=== PATIENT | female | born 1945 | race Caucasian/White ===

== ENCOUNTER 2018-07-25 05:41 | Inpatient (IN) | payer MEDICARE, MEDICAID ==
[2018-07-23 15:38] LABS: BASOPHILS % (AUTO) 0.7 % (0-1); EOSINOPHILS # (AUTO) 0.3 X10'3 (0-0.9); LYMPHOCYTES # (AUTO) 1.4 X10'3 (1.1-4.8); LYMPHOCYTES % (AUTO) 23.3 % (21-51); MEAN CORPUSCULAR HEMOGLOBIN 31.6 PG (27.0-31.0); MEAN CORPUSCULAR HGB CONC 34.2 % (33.0-36.5); MEAN CORPUSCULAR VOLUME 92.6 FL (78-98); MEAN PLATELET VOLUME 8.6 FL (7.4-10.4); MONOCYTES # (AUTO) 0.5 X10'3 (0-0.9); MONOCYTES % (AUTO) 7.8 % (2-12); NEUTROPHILS # (AUTO) 3.7 X10'3 (1.8-7.7); NEUTROPHILS % (AUTO) 62.2 % (42-75); PRE OP HEMATOCRIT 32.4 % (35.0-45.0); PRE OP HEMOGLOBIN 11.1 g/dL (12.0-16.0); PRE OP PLATELET COUNT 212 X10'3 (140-440); RED BLOOD COUNT 3.49 X10'6 (4.20-5.60); RED CELL DISTRIBUTION WIDTH 14.8 % (11.5-14.5)
[2018-07-23 15:40] LABS: CLARITY,URINE SLIGHTLY CLOUDY (Clear); COLOR,URINE YELLOW (Yellow); GLUCOSE, URINE >=1000 mg/dl (Neg); KETONES,URINE NEGATIVE (Neg); LEUKOCYTE ESTERASE ,URINE NEGATIVE (Neg); NITRITES, URINE POSITIVE (Neg); OCCULT BLOOD,URINE TRACE-LYSED (Neg); PH,URINE 5.5 (4.8-8.0); PROTEIN,URINE NEGATIVE (Neg); UROBILINOGEN,URINE 0.2 E.U/dL (0.2-1.0)
[2018-07-23 15:41] LABS: ABG BASE EXCESS 0.5 mmol/L (-2.0-3.0); ABG HCO3 24.9 mmol/L (22.0-26.0); ABG OXYGEN SATURATION 96.3 % (95-98); ABG PCO2 (T) 39.5 mmHg (32.0-45.0); ABG PH (T) 7.418 (7.350-7.450); ABG PO2 (T) 87.6 mmHg (83-108); ALLEN'S TEST Positive; FO2Hb 96.3 % (94-100); TOTAL HEMOGLOBIN 12.2 G/dl (12.0-16.0)
[2018-07-23 15:48] LABS: PRE OP PROTIME 10.3 SECONDS (9.0-12.0)
[2018-07-23 15:50] LABS: UA COLLECTION TYPE CLN CATCH MIDSTREAM
[2018-07-23 16:02] LABS: ALBUMIN 3.3 G/DL (3.4-5.0); ALKALINE PHOSPHATASE 64 IU/L (46-116); BLOOD UREA NITROGEN 37 MG/DL (7-18); BUN/CREATININE RATIO 30.1 (6.6-38.0); CALCIUM 9.1 MG/DL (8.5-10.1); CHLORIDE 102 MMOL/L (99-107); CREATININE 1.23 MG/DL (0.40-0.90); PRE OP ALT 17 U/L (30-65); PRE OP ANION GAP 7 (8-16); PRE OP AST 14 U/L (10-37); PRE OP BILIRUB, TOTAL 0.3 MG/DL (0.0-1.0); PRE OP GLUCOSE 97 MG/DL (70-104); PRE OP POTASSIUM 3.6 MMOL/L (3.4-5.1); PRE OP SODIUM 137 MMOL/L (135-145); TOTAL CARBON DIOXIDE 28.4 MMOL/L (24-32); TOTAL PROTEIN 6.7 G/DL (6.4-8.2); eGFR 43 ML/MIN
[2018-07-23 16:03] LABS: BACTERIA,URINE 4+ /HPF (Neg); MUCUS STRANDS NONE SEEN /LPF (Neg); RBC,URINE NONE SEEN /HPF (0-2); SQUAMOUS EPITHELIAL CELL,UR FEW /LPF (FEW); TRANSITIONAL EPI CELLS,URINE FEW /HPF; WBC,URINE 0-4 /HPF (0-4)
[2018-07-23 16:17] LABS: HEMOGLOBIN A1C 6.4 % (4.5-6.2)
[~2018-07-25] VITALS: Ht 170.2 cm; Wt 92.3 kg
[2018-07-25] VITALS (24 sets, daily range): BP systolic 92–144; BP diastolic 37–69
[~2018-07-25 05:41] MED LIST: AMLO2.5T3 PO; ASPI-1265 PO; Cefazolin 2GM/50ML dext iso,osmotic IVPB IV ONE; DOCUMENT DATE & TIME OF BETA-BLOCKER PO ONE; EMPA25TA PO; INSU200I; LEVO75TA PO; LORazepam 2 mg/ml vial IV ONE; MAGN400C PO; METF500T PO; METO100T14 PO; OLME1TAB24 PO; PIOG30TA10 PO; ceFAZolin 1000mg inj ONE; dextrose 50%-water 50ml dispensing syringe IV PRN; famotidine 20mg tablet PO ONE; insulin regular, human 100 UNIT in normal saline 100ml IV soln 99 ML IV SCH; metoprolol tartrate 12.5mg (1/2 tablet) PO ONE; mupirocin 2% nasal ointment 1gm UD NS ONE; ringers solution, lacted 1,000 ML IV SCH; vancomycin inj 1,500 MG in normal saline 300ml IV soln IV ONE
[2018-07-25] MEDS ORDERED: LIDOcaine 1% (10mg/ml) 2ml vial ONE (05:43)
[2018-07-25] MEDS ORDERED: papaverine 30 mg/ml 2ml inj. IA ONE (06:00)
[2018-07-25] MEDS ORDERED: heparin 10,000 units/1 ML INJ IR ONE (06:00)
[2018-07-25] MEDS ORDERED: ATOR40TA3 PO (06:02)
[2018-07-25] MEDS ORDERED: OLME1TAB21 PO (06:02)
[2018-07-25] MEDS ORDERED: sevoflurane 250ml liquid IH ONE (07:48)
[2018-07-25] MEDS ORDERED: INSULIN R 100 UNIT in NS 100ML (1 UNIT/1 ML) BAG IV ONE (07:48)
[2018-07-25] MEDS ORDERED: DOPamine/D5W 400mg/250ml bag IV ONE (07:48)
[2018-07-25] MEDS ORDERED: nitroGLYCERIN in D5W 50mg/250ml (Tridil) infusion IV ONE (07:48)
[2018-07-25] MEDS ORDERED: isoflurane 100ml inhalation liquid IH ONE (07:48)
[2018-07-25] MEDS ORDERED: MIDAZolam 1mg/ml 10ml vial ONE (07:52)
[2018-07-25] MEDS ORDERED: SUFENTANIL CITRATE 50 MCG/ML 2ml ampule IV ONE (07:52)
[2018-07-25] MEDS ORDERED: methylPREDNISolone sod succ 1000mg vial ONE (09:00)
[2018-07-25] MEDS ORDERED: heparin 1,000 units/ml 10ml inj ONE (09:00)
[2018-07-25] MEDS ORDERED: magnesium sulf 1 GM/2 ML ONE (09:00)
[2018-07-25] MEDS ORDERED: phenylephrine 10mg/ml inj. ONE (09:00)
[2018-07-25] MEDS ORDERED: sodium bicarbonate (8.4%) 1 mEq/ml syringe ONE (09:00)
[2018-07-25] MEDS ORDERED: potassium Cl 2 mEq/ml inj IV ONE (09:00)
[2018-07-25] MEDS ORDERED: papaverine 30 mg/ml 2ml inj. ONE (09:00)
[2018-07-25] MEDS ORDERED: LIDOcaine 2% (20 mg/ml) 5ml cardiac syringe ONE (09:00)
[2018-07-25] MEDS ORDERED: albumin (human) 25% 100 ML IV solution IV ONE (09:00)
[2018-07-25] MEDS ORDERED: aminocaproic acid 250 MG/1 ML inj. ONE (09:00)
[2018-07-25] MEDS ORDERED: heparin 10,000 units/1 ML INJ ONE ×2 (09:00)
[2018-07-25] MEDS ORDERED: calcium chloride 100 MG/1 ML inj IV ONE (09:00)
[2018-07-25 09:36] LABS: ABG BASE EXCESS VENOUS 0.3 mmol/L; ABG HCO3 VENOUS 25.4 mmol/L; CL (ABG) 103 mmol/L (99-107); FCOHb VENOUS 0.8 %; FHHb VENOUS 11.3 %; FMetHb VENOUS 0.3 %; FO2Hb VENOUS 87.6 %; GLUCOSE (ABG) 130 mg/dl (70-105); IONIZED CA (ABG) 1.15 mmol/L (1.03-1.32); K (ABG) 3.8 mmol/L (3.3-5.1); NA (ABG) 134 mmol/L (135-145); TOTAL HEMOGLOBIN 14.1 G/dl (12.0-16.0)
[2018-07-25 09:50] LABS: ABG BASE EXCESS 1.7 mmol/L (-2.0-3.0); ABG HCO3 24.7 mmol/L (22.0-26.0); ABG OXYGEN SATURATION 99.5 % (95-98); ABG PH 7.506 (7.350-7.450); CL (ABG) 101 mmol/L (99-107); FCOHb 0.5 % (0.5-1.5); FMetHb 0.6 % (0.3-1.12); FO2Hb 98.4 % (94-100); GLUCOSE (ABG) 142 mg/dl (70-105); K (ABG) 3.8 mmol/L (3.3-5.1); NA (ABG) 132 mmol/L (135-145); TOTAL HEMOGLOBIN 7.6 G/dl (12.0-16.0)
[2018-07-25] MEDS ORDERED: ipratropium/albuterol 3ml nebule IH PRN (09:55)
[2018-07-25 09:56] LABS: ACT @ 1.70 U 292 SEC (193-297); ACT @ 2.84 U 431 SEC (260-420); BASELINE ACT 126 SEC (101-148); PATIENT WEIGHT 84.0k KG
[2018-07-25 09:56] LABS: ABG BASE EXCESS 0.9 mmol/L (-2.0-3.0); ABG HCO3 25.3 mmol/L (22.0-26.0); ABG OXYGEN SATURATION 84.2 % (95-98); ABG PCO2 39.5 mmHg (35.0-45.0); ABG PH 7.424 (7.350-7.450); CL (ABG) 103 mmol/L (99-107); FCOHb 0.2 % (0.5-1.5); GLUCOSE (ABG) 115 mg/dl (70-105); IONIZED CA (ABG) 1.15 mmol/L (1.03-1.32); K (ABG) 3.8 mmol/L (3.3-5.1); NA (ABG) 135 mmol/L (135-145); TOTAL HEMOGLOBIN 10.3 G/dl (12.0-16.0)
[2018-07-25 09:59] LABS: ABG PO2 49.9 mmHg (60.0-100.0)
[2018-07-25 10:21] LABS: ABG BASE EXCESS 0.4 mmol/L (-2.0-3.0); ABG HCO3 23.3 mmol/L (22.0-26.0); ABG OXYGEN SATURATION 99.5 % (95-98); ABG PCO2 30.5 mmHg (35.0-45.0); ABG PH 7.501 (7.350-7.450); ABG PO2 375.6 mmHg (60.0-100.0); CL (ABG) 103 mmol/L (99-107); FCOHb 0.6 % (0.5-1.5); FMetHb 0.4 % (0.3-1.12); FO2Hb 98.5 % (94-100); GLUCOSE (ABG) 141 mg/dl (70-105); IONIZED CA (ABG) 1.07 mmol/L (1.03-1.32); K (ABG) 4.3 mmol/L (3.3-5.1); NA (ABG) 132 mmol/L (135-145)
[2018-07-25 10:30] LABS: ABG HCO3 26.5 mmol/L (22.0-26.0); ABG OXYGEN SATURATION 99.4 % (95-98); ABG PCO2 (T) 38.7 mmHg (32.0-45.0); ABG PH (T) 7.449 (7.350-7.450); ABG PO2 (T) 359.4 mmHg (83-108); FCOHb 0.4 % (0.5-1.5); FMetHb 0.5 % (0.3-1.12); FO2Hb 98.5 % (94-100); TOTAL HEMOGLOBIN 7.7 G/dl (12.0-16.0)
[2018-07-25 10:36] LABS: ABG HCO3 25.4 mmol/L (22.0-26.0); ABG OXYGEN SATURATION 99.5 % (95-98); ABG PCO2 39.4 mmHg (35.0-45.0); ABG PH 7.428 (7.350-7.450); ABG PO2 379.4 mmHg (60.0-100.0); CL (ABG) 104 mmol/L (99-107); FCOHb 0.6 % (0.5-1.5); FMetHb 0.5 % (0.3-1.12); FO2Hb 98.4 % (94-100); GLUCOSE (ABG) 144 mg/dl (70-105); IONIZED CA (ABG) 1.07 mmol/L (1.03-1.32); K (ABG) 4.7 mmol/L (3.3-5.1); NA (ABG) 141 mmol/L (135-145); TOTAL HEMOGLOBIN 7.6 G/dl (12.0-16.0)
[2018-07-25 11:00] LABS: ABG BASE EXCESS 1.7 mmol/L (-2.0-3.0); ABG HCO3 26.6 mmol/L (22.0-26.0); ABG OXYGEN SATURATION 99.5 % (95-98); ABG PCO2 43.5 mmHg (35.0-45.0); ABG PH 7.405 (7.350-7.450); ABG PO2 330.1 mmHg (60.0-100.0); CL (ABG) 104 mmol/L (99-107); FCOHb 0.6 % (0.5-1.5); FMetHb 0.5 % (0.3-1.12); FO2Hb 98.4 % (94-100); GLUCOSE (ABG) 146 mg/dl (70-105); K (ABG) 4.5 mmol/L (3.3-5.1); NA (ABG) 134 mmol/L (135-145); TOTAL HEMOGLOBIN 7.8 G/dl (12.0-16.0)
[2018-07-25 11:21] LABS: ABG HCO3 21.6 mmol/L (22.0-26.0); ABG OXYGEN SATURATION 99.3 % (95-98); ABG PCO2 48.9 mmHg (35.0-45.0); ABG PH 7.263 (7.350-7.450); ABG PO2 324.5 mmHg (60.0-100.0); CL (ABG) 104 mmol/L (99-107); FCOHb 0.8 % (0.5-1.5); FMetHb 0.6 % (0.3-1.12); FO2Hb 97.9 % (94-100); GLUCOSE (ABG) 137 mg/dl (70-105); K (ABG) 4.3 mmol/L (3.3-5.1); NA (ABG) 134 mmol/L (135-145); TOTAL HEMOGLOBIN 6.6 G/dl (12.0-16.0)
[2018-07-25] MEDS ORDERED: rocuronium 10mg/ml inj IV ONE (11:47)
[2018-07-25] MEDS ORDERED: ceFAZolin 1000mg inj ONE (11:47)
[2018-07-25] MEDS ORDERED: etomidate 2mg/ml inj. ONE (11:47)
[2018-07-25] MEDS ORDERED: LIDOcaine 2% (20mg/ml) 5ml vial ONE (11:47)
[2018-07-25 11:51] LABS: ABG BASE EXCESS 3.8 mmol/L (-2.0-3.0); ABG HCO3 28.1 mmol/L (22.0-26.0); ABG OXYGEN SATURATION 82.6 % (95-98); ABG PCO2 41.6 mmHg (35.0-45.0); ABG PH 7.448 (7.350-7.450); ABG PO2 49.6 mmHg (60.0-100.0); CL (ABG) 104 mmol/L (99-107); FCOHb 0.6 % (0.5-1.5); FMetHb 0.8 % (0.3-1.12); FO2Hb 81.4 % (94-100); GLUCOSE (ABG) 135 mg/dl (70-105); IONIZED CA (ABG) 1.19 mmol/L (1.03-1.32); K (ABG) 4.1 mmol/L (3.3-5.1); NA (ABG) 131 mmol/L (135-145); TOTAL HEMOGLOBIN 7.3 G/dl (12.0-16.0)
[2018-07-25] MEDS ORDERED: DOPamine 400mg/D5W 250ml 250 ML IV PRN (12:20)
[2018-07-25] MEDS ORDERED: Neutra Phos packet PO PRN (12:20)
[2018-07-25] MEDS ORDERED: magnesium 1gm/100ml D5W IVPB 100 ML IV PRN (12:20)
[2018-07-25] MEDS ORDERED: metoclopramide 5 mg/ml inj IV PRN (12:20)
[2018-07-25] MEDS ORDERED: normal saline 250ml IV soln 250 ML IV PRN (12:20)
[2018-07-25] MEDS ORDERED: insulin regular, human inj. 100 UNITS in normal saline 100ml IV soln 100 ML IV SCH ×2 (12:20)
[2018-07-25] MEDS ORDERED: sodium phosphate inj. 15 MMOL in dextrose 5%-water 150 ML IV PRN (12:20)
[2018-07-25] MEDS ORDERED: dextrose 50%-water 50ml dispensing syringe IV PRN (12:20)
[2018-07-25] MEDS ORDERED: potassium Cl 20mEq/100mL bag 100 ML IV PRN ×2 (12:20)
[2018-07-25] MEDS ORDERED: magnesium 4gm in 100ml NS 100 ML IV PRN (12:20)
[2018-07-25] MEDS ORDERED: sodium phosphate inj. 30 MMOL in dextrose 5%-water 250 ML IV PRN (12:20)
[2018-07-25] MEDS ORDERED: niCARDipine/sod cl 20mg/200ml 200 ML IV PRN (12:20)
[2018-07-25] MEDS ORDERED: acetaminophen 325mg tablet PO PRN (12:20)
[2018-07-25] MEDS ORDERED: nitroGLYCERIN-Tridil 50MG/D5W 250 ML IV PRN (12:20)
[2018-07-25] MEDS ORDERED: morphine 4 MG/ML inj SYRINge ONE (12:28)
[2018-07-25 12:35] LABS: ABG BASE EXCESS 0.2 mmol/L (-2.0-3.0); ABG HCO3 23.5 mmol/L (22.0-26.0); ABG PCO2 (T) 31.3 mmHg (32.0-45.0); ABG PH (T) 7.489 (7.350-7.450); ABG PO2 (T) 403.1 mmHg (83-108); FCOHb 0.2 % (0.5-1.5); FMetHb 0.4 % (0.3-1.12); FO2Hb 98.4 % (94-100); MINUTE VOLUME 8 L/min; PATIENT TEMPERATURE 36.1; PEEP 5 cm H2O; RESPIRATORY RATE 12 b/min; RESPIRATORY RATE (OBSERVED) 12 b/min; TIDAL VOLUME 600 mL; TOTAL HEMOGLOBIN 8.9 G/dl (12.0-16.0)
[2018-07-25 12:42] LABS: BASOPHILS % (AUTO) 0.2 % (0-1); EOSINOPHILS # (AUTO) 0.1 X10'3 (0-0.9); EOSINOPHILS % (AUTO) 1.6 % (0-6); HEMATOCRIT 23.5 % (35.0-45.0); HEMOGLOBIN 8.2 g/dl (12.0-16.0); LYMPHOCYTES # (AUTO) 1.1 X10'3 (1.1-4.8); LYMPHOCYTES % (AUTO) 14.5 % (21-51); MEAN CORPUSCULAR HEMOGLOBIN 32.2 PG (27.0-31.0); MEAN CORPUSCULAR HGB CONC 34.9 % (33.0-36.5); MEAN CORPUSCULAR VOLUME 92.1 FL (78-98); MEAN PLATELET VOLUME 8.5 FL (7.4-10.4); MONOCYTES # (AUTO) 0.3 X10'3 (0-0.9); MONOCYTES % (AUTO) 3.5 % (2-12); NEUTROPHILS # (AUTO) 6.2 X10'3 (1.8-7.7); NEUTROPHILS % (AUTO) 80.2 % (42-75); PLATELET COUNT 130 X10'3 (140-440); RED BLOOD COUNT 2.55 X10'6 (4.20-5.60); RED CELL DISTRIBUTION WIDTH 14.8 % (11.5-14.5); WHITE BLOOD COUNT 7.7 X10'3 (4.5-11.0)
[2018-07-25 12:52] LABS: INR 1.2 INR; PARTIAL THROMBOPLASTIN TIME 26 SECONDS (22-32); PROTHROMBIN TIME 11.9 SECONDS (9.0-12.0)
[2018-07-25 12:59] LABS: ALANINE AMINOTRANSFERASE 17 U/L (12-78); ALBUMIN 2.7 G/DL (3.4-5.0); ALBUMIN/GLOBULIN RATIO 1.4 (1.1-1.5); ALKALINE PHOSPHATASE 37 IU/L (46-116); ANION GAP 8 (8-16); ASPARTATE AMINO TRANSFERASE 24 U/L (10-37); BILIRUBIN,TOTAL 0.4 MG/DL (0.1-1.0); BLOOD UREA NITROGEN 32 MG/DL (7-18); BUN/CREATININE RATIO 25.2 (6.6-38.0); CALCIUM 9.1 MG/DL (8.5-10.1); CHLORIDE 108 MMOL/L (99-107); CREATININE 1.27 MG/DL (0.40-0.90); GLUCOSE 120 MG/DL (70-104); MAGNESIUM 3.8 MG/DL (1.5-2.4); PHOSPHORUS 1.7 MG/DL (2.3-4.5); POTASSIUM 3.7 MMOL/L (3.5-5.1); SODIUM 142 MMOL/L (135-145); TOTAL PROTEIN 4.7 G/DL (6.4-8.2); eGFR 41 ML/MIN
[2018-07-25] MEDS ORDERED: insulin Lispro (HumaLOG) vial - multi-dose SQ SCH (13:00)
[2018-07-25] MEDS: albumin (Human) 5% 250ml 250 ML IV PRN ×3 (13:07→14:22)
[2018-07-25] MEDS: potassium Cl 20mEq/100mL bag 100 ML IV PRN ×4 (13:25→20:48)
[2018-07-25] MEDS: sodium chloride 0.45% 1,000 ML IV SCH (13:51)
[2018-07-25] MEDS: insulin regular, human 100 UNIT in normal saline 100ml IV soln 99 ML IV SCH ×10 (14:27→19:55)
[2018-07-25 15:26] LABS: ACTIVATED CLOTTING TIME 137 SEC (101-148)
[2018-07-25 15:27] LABS: BASOPHILS % (AUTO) 0 % (0-1); EOSINOPHILS # (AUTO) 0.1 X10'3 (0-0.9); EOSINOPHILS % (AUTO) 1.3 % (0-6); LYMPHOCYTES # (AUTO) 0.8 X10'3 (1.1-4.8); MEAN CORPUSCULAR HEMOGLOBIN 32.1 PG (27.0-31.0); MEAN CORPUSCULAR HGB CONC 34.8 % (33.0-36.5); MEAN CORPUSCULAR VOLUME 92.2 FL (78-98); MEAN PLATELET VOLUME 8.9 FL (7.4-10.4); MONOCYTES # (AUTO) 0.3 X10'3 (0-0.9); MONOCYTES % (AUTO) 3.8 % (2-12); NEUTROPHILS # (AUTO) 5.9 X10'3 (1.8-7.7); NEUTROPHILS % (AUTO) 83.9 % (42-75); PLATELET COUNT 105 X10'3 (140-440); RED BLOOD COUNT 2.07 X10'6 (4.20-5.60); RED CELL DISTRIBUTION WIDTH 14.6 % (11.5-14.5)
[2018-07-25 15:29] LABS: HEMATOCRIT 19.1 % (35.0-45.0); HEMOGLOBIN 6.6 g/dl (12.0-16.0)
[2018-07-25] MEDS: ceFAZolin 1GM/D5W- ADD-VANTAGE 50 ML IV SCH (16:14)
[2018-07-25] MEDS: NORepinephrine 8mg/ 250ml NS 250 ML IV SCH (16:15)
[2018-07-25] MEDS: morphine 4 MG/ML inj SYRINge IV PRN ×3 (16:50→21:18)
[2018-07-25 18:02] LABS: BASOPHILS % (AUTO) 0 % (0-1); EOSINOPHILS % (AUTO) 0 % (0-6); HEMATOCRIT 27.4 % (35.0-45.0); HEMOGLOBIN 9.3 g/dl (12.0-16.0); LYMPHOCYTES # (AUTO) 0.3 X10'3 (1.1-4.8); LYMPHOCYTES % (AUTO) 4.7 % (21-51); MEAN CORPUSCULAR HEMOGLOBIN 30.4 PG (27.0-31.0); MEAN CORPUSCULAR VOLUME 89.5 FL (78-98); MEAN PLATELET VOLUME 8.4 FL (7.4-10.4); MONOCYTES # (AUTO) 0.3 X10'3 (0-0.9); MONOCYTES % (AUTO) 3.6 % (2-12); NEUTROPHILS # (AUTO) 6.6 X10'3 (1.8-7.7); NEUTROPHILS % (AUTO) 91.7 % (42-75); PLATELET COUNT 100 X10'3 (140-440); RED BLOOD COUNT 3.06 X10'6 (4.20-5.60); RED CELL DISTRIBUTION WIDTH 15.1 % (11.5-14.5); WHITE BLOOD COUNT 7.2 X10'3 (4.5-11.0)
[2018-07-25 18:12] LABS: ALBUMIN 3.2 G/DL (3.4-5.0); ANION GAP 10 (8-16); BLOOD UREA NITROGEN 29 MG/DL (7-18); BUN/CREATININE RATIO 24.8 (6.6-38.0); CALCIUM 8.6 MG/DL (8.5-10.1); CHLORIDE 109 MMOL/L (99-107); CREATININE 1.17 MG/DL (0.40-0.90); GLUCOSE 153 MG/DL (70-104); POTASSIUM 3.7 MMOL/L (3.5-5.1); SODIUM 141 MMOL/L (135-145); TOTAL CARBON DIOXIDE 22.2 MMOL/L (24-32); eGFR 45 ML/MIN
[2018-07-25] MEDS: vancomycin/NS 1 GM ADD-VANTAGE 250 ML IV SCH (19:46)
[2018-07-25] MEDS: mupirocin 2% nasal ointment 1gm UD NS SCH (19:50)
[2018-07-25] MEDS: docusate sod 100mg capsule PO SCH (19:56)
[2018-07-26] VITALS (24 sets, daily range): BP systolic 87–130; BP diastolic 36–68
[2018-07-26] MEDS: ceFAZolin 1GM/D5W- ADD-VANTAGE 50 ML IV SCH ×4 (00:03→23:52)
[2018-07-26] MEDS: insulin regular, human 100 UNIT in normal saline 100ml IV soln 99 ML IV SCH ×4 (00:05→04:12)
[2018-07-26 01:25] LABS: BASOPHILS % (AUTO) 0 % (0-1); EOSINOPHILS % (AUTO) 0.1 % (0-6); HEMATOCRIT 27.9 % (35.0-45.0); HEMOGLOBIN 9.5 g/dl (12.0-16.0); LYMPHOCYTES # (AUTO) 0.5 X10'3 (1.1-4.8); LYMPHOCYTES % (AUTO) 4.7 % (21-51); MEAN CORPUSCULAR VOLUME 91.1 FL (78-98); MEAN PLATELET VOLUME 9.3 FL (7.4-10.4); MONOCYTES # (AUTO) 0.3 X10'3 (0-0.9); MONOCYTES % (AUTO) 3.3 % (2-12); NEUTROPHILS # (AUTO) 9.2 X10'3 (1.8-7.7); NEUTROPHILS % (AUTO) 91.9 % (42-75); PLATELET COUNT 93 X10'3 (140-440); RED BLOOD COUNT 3.06 X10'6 (4.20-5.60); RED CELL DISTRIBUTION WIDTH 14.6 % (11.5-14.5)
[2018-07-26 01:35] LABS: INR 1.1 INR; PARTIAL THROMBOPLASTIN TIME 28 SECONDS (22-32)
[2018-07-26 01:37] LABS: ALANINE AMINOTRANSFERASE 13 U/L (12-78); ALBUMIN 3.1 G/DL (3.4-5.0); ALBUMIN/GLOBULIN RATIO 1.6 (1.1-1.5); ALKALINE PHOSPHATASE 32 IU/L (46-116); ANION GAP 11 (8-16); ASPARTATE AMINO TRANSFERASE 39 U/L (10-37); BILIRUBIN,TOTAL 0.5 MG/DL (0.1-1.0); BLOOD UREA NITROGEN 29 MG/DL (7-18); BUN/CREATININE RATIO 25.7 (6.6-38.0); CALCIUM 8.7 MG/DL (8.5-10.1); CHLORIDE 110 MMOL/L (99-107); CREATININE 1.13 MG/DL (0.40-0.90); GLUCOSE 128 MG/DL (70-104); MAGNESIUM 2.7 MG/DL (1.5-2.4); PHOSPHORUS 3.9 MG/DL (2.3-4.5); POTASSIUM 3.8 MMOL/L (3.5-5.1); SODIUM 143 MMOL/L (135-145); TOTAL CARBON DIOXIDE 22.4 MMOL/L (24-32); TOTAL PROTEIN 5.1 G/DL (6.4-8.2); eGFR 47 ML/MIN
[2018-07-26 01:37] LABS: ABG BASE EXCESS -3.8 mmol/L (-2.0-3.0); ABG HCO3 20.8 mmol/L (22.0-26.0); ABG OXYGEN SATURATION 97.3 % (95-98); ABG PCO2 (T) 35.5 mmHg (32.0-45.0); ABG PH (T) 7.384 (7.350-7.450); ABG PO2 (T) 106.3 mmHg (83-108); FCOHb 0.2 % (0.5-1.5); FMetHb 0.4 % (0.3-1.12); FO2Hb 96.7 % (94-100); MINUTE VOLUME 5 L/min; PATIENT TEMPERATURE 36.7; PEEP 5 cm H2O; RESPIRATORY RATE (OBSERVED) 9 b/min; TOTAL HEMOGLOBIN 10.3 G/dl (12.0-16.0)
[2018-07-26] MEDS: morphine 4 MG/ML inj SYRINge IV PRN ×3 (01:47→09:13)
[2018-07-26] MEDS: potassium Cl 20mEq/100mL bag 100 ML IV PRN ×2 (01:56→03:02)
[2018-07-26] MEDS: HYDROcodone/acetaminophen 10/325mg tab PO PRN ×3 (03:11→19:29)
[2018-07-26] MEDS: pantoprazole 40mg Tablet.DR PO SCH (08:04)
[2018-07-26] MEDS: metoprolol tartrate 12.5mg (1/2 tablet) PO SCH ×2 (08:04→19:28)
[2018-07-26] MEDS: vancomycin/NS 1 GM ADD-VANTAGE 250 ML IV SCH ×2 (08:04→19:29)
[2018-07-26] MEDS: aspirin 325mg tablet, delayed-release (Ecotrin) PO SCH (08:04)
[2018-07-26] MEDS: atorvastatin 10mg tablet PO SCH (08:04)
[2018-07-26] MEDS: levoTHYROXINE 75mcg tablet PO SCH (08:04)
[2018-07-26] MEDS: docusate sod 100mg capsule PO SCH ×2 (08:04→19:28)
[2018-07-26] MEDS: mupirocin 2% nasal ointment 1gm UD NS SCH ×2 (08:05→19:28)
[2018-07-26 17:38] LABS: HEMATOCRIT 26.8 % (35.0-45.0); HEMOGLOBIN 9.1 g/dl (12.0-16.0); MEAN CORPUSCULAR HEMOGLOBIN 30.9 PG (27.0-31.0); MEAN CORPUSCULAR HGB CONC 33.9 % (33.0-36.5); MEAN CORPUSCULAR VOLUME 91.2 FL (78-98); MEAN PLATELET VOLUME 9.5 FL (7.4-10.4); PLATELET COUNT 104 X10'3 (140-440); RED BLOOD COUNT 2.93 X10'6 (4.20-5.60); RED CELL DISTRIBUTION WIDTH 16.9 % (11.5-14.5); WHITE BLOOD COUNT 13.8 X10'3 (4.5-11.0)
[2018-07-26] MEDS ORDERED: dextrose 50%-water 50ml dispensing syringe IV PRN ×2 (21:10)
[2018-07-26] MEDS ORDERED: insulin Lispro (HumaLOG) vial - multi-dose SQ SCH (21:10)
[2018-07-26] MEDS ORDERED: dextrose ORAL solution 15 GM/59 ML bottle PO PRN ×2 (21:10)
[2018-07-26] MEDS ORDERED: glucagon, human recombinant 1mg kit SUBCUT PRN (21:10)
[2018-07-26] MEDS: insulin glargine (Lantus) pen - multi-dose SQ SCH (21:40)
[2018-07-27] VITALS (24 sets, daily range): BP systolic 85–130; BP diastolic 41–65
[2018-07-27 02:50] LABS: BASOPHILS % (AUTO) 0 % (0-1); EOSINOPHILS % (AUTO) 0 % (0-6); HEMATOCRIT 25.3 % (35.0-45.0); HEMOGLOBIN 8.6 g/dl (12.0-16.0); LYMPHOCYTES # (AUTO) 0.7 X10'3 (1.1-4.8); LYMPHOCYTES % (AUTO) 6.3 % (21-51); MEAN CORPUSCULAR HGB CONC 33.7 % (33.0-36.5); MEAN PLATELET VOLUME 9.8 FL (7.4-10.4); MONOCYTES # (AUTO) 0.8 X10'3 (0-0.9); MONOCYTES % (AUTO) 6.7 % (2-12); NEUTROPHILS # (AUTO) 9.8 X10'3 (1.8-7.7); PLATELET COUNT 96 X10'3 (140-440); RED BLOOD COUNT 2.75 X10'6 (4.20-5.60); RED CELL DISTRIBUTION WIDTH 16.6 % (11.5-14.5); WHITE BLOOD COUNT 11.2 X10'3 (4.5-11.0)
[2018-07-27 03:09] LABS: ALBUMIN 2.9 G/DL (3.4-5.0); ANION GAP 6 (8-16); BLOOD UREA NITROGEN 34 MG/DL (7-18); BUN/CREATININE RATIO 25.6 (6.6-38.0); CALCIUM 8.7 MG/DL (8.5-10.1); CHLORIDE 106 MMOL/L (99-107); CREATININE 1.33 MG/DL (0.40-0.90); GLUCOSE 217 MG/DL (70-104); MAGNESIUM 2.5 MG/DL (1.5-2.4); PHOSPHORUS 4.6 MG/DL (2.3-4.5); POTASSIUM 4.6 MMOL/L (3.5-5.1); SODIUM 137 MMOL/L (135-145); TOTAL CARBON DIOXIDE 24.8 MMOL/L (24-32); eGFR 39 ML/MIN
[2018-07-27] MEDS: HYDROcodone/acetaminophen 10/325mg tab PO PRN ×4 (05:28→21:27)
[2018-07-27 07:16] LABS: TROPONIN I 1.85 NG/ML (0.0-0.05)
[2018-07-27] MEDS: mupirocin 2% nasal ointment 1gm UD NS SCH (08:00)
[2018-07-27] MEDS ORDERED: amiodarone 150mg/dext, iso-os 100 ML IV ONE (08:20)
[2018-07-27] MEDS: amiodarone/D5 360MG/200ML BAG 200 ML IV SCH ×3 (08:35→20:31)
[2018-07-27] MEDS: metoprolol tartrate 12.5mg (1/2 tablet) PO SCH ×2 (08:59→21:24)
[2018-07-27] MEDS: docusate sod 100mg capsule PO SCH ×2 (08:59→21:24)
[2018-07-27] MEDS: aspirin 325mg tablet, delayed-release (Ecotrin) PO SCH (09:00)
[2018-07-27] MEDS: atorvastatin 10mg tablet PO SCH (09:00)
[2018-07-27] MEDS: levoTHYROXINE 75mcg tablet PO SCH (09:00)
[2018-07-27] MEDS: pantoprazole 40mg Tablet.DR PO SCH (09:02)
[2018-07-27] MEDS: insulin Lispro (HumaLOG) vial - multi-dose SQ PRN ×3 (09:12→19:15)
[2018-07-27] MEDS: sodium chloride 0.45% 1,000 ML IV SCH (12:20)
[2018-07-27] MEDS: NORepinephrine 8mg/ 250ml NS 250 ML IV SCH (15:35)
[2018-07-27] MEDS: insulin glargine (Lantus) pen - multi-dose SQ SCH (21:31)
[2018-07-28] VITALS (25 sets, daily range): BP systolic 87–140; BP diastolic 49–93
[2018-07-28] MEDS: amiodarone/D5 360MG/200ML BAG 200 ML IV SCH (02:10)
[2018-07-28 03:32] LABS: BASOPHILS % (AUTO) 0 % (0-1); EOSINOPHILS % (AUTO) 0 % (0-6); HEMATOCRIT 24.5 % (35.0-45.0); HEMOGLOBIN 8.4 g/dl (12.0-16.0); LYMPHOCYTES # (AUTO) 0.8 X10'3 (1.1-4.8); LYMPHOCYTES % (AUTO) 8.4 % (21-51); MEAN CORPUSCULAR HEMOGLOBIN 31.1 PG (27.0-31.0); MEAN CORPUSCULAR HGB CONC 34.1 % (33.0-36.5); MEAN PLATELET VOLUME 9.6 FL (7.4-10.4); MONOCYTES # (AUTO) 0.6 X10'3 (0-0.9); MONOCYTES % (AUTO) 6.1 % (2-12); NEUTROPHILS # (AUTO) 8.1 X10'3 (1.8-7.7); NEUTROPHILS % (AUTO) 85.5 % (42-75); PLATELET COUNT 95 X10'3 (140-440); RED BLOOD COUNT 2.69 X10'6 (4.20-5.60); RED CELL DISTRIBUTION WIDTH 16.2 % (11.5-14.5); WHITE BLOOD COUNT 9.5 X10'3 (4.5-11.0)
[2018-07-28 03:52] LABS: ALBUMIN 2.4 G/DL (3.4-5.0); ANION GAP 4 (8-16); BLOOD UREA NITROGEN 39 MG/DL (7-18); BUN/CREATININE RATIO 34.8 (6.6-38.0); CALCIUM 8.6 MG/DL (8.5-10.1); CHLORIDE 105 MMOL/L (99-107); CREATININE 1.12 MG/DL (0.40-0.90); GLUCOSE 140 MG/DL (70-104); MAGNESIUM 2.3 MG/DL (1.5-2.4); PHOSPHORUS 2.7 MG/DL (2.3-4.5); POTASSIUM 4.4 MMOL/L (3.5-5.1); SODIUM 136 MMOL/L (135-145); TOTAL CARBON DIOXIDE 26.7 MMOL/L (24-32); eGFR 48 ML/MIN
[2018-07-28] MEDS: HYDROcodone/acetaminophen 10/325mg tab PO PRN ×3 (06:56→21:14)
[2018-07-28] MEDS: pantoprazole 40mg Tablet.DR PO SCH (06:56)
[2018-07-28] MEDS: docusate sod 100mg capsule PO SCH ×2 (08:19→19:02)
[2018-07-28] MEDS: aspirin 325mg tablet, delayed-release (Ecotrin) PO SCH (08:19)
[2018-07-28] MEDS: atorvastatin 10mg tablet PO SCH (08:19)
[2018-07-28] MEDS: levoTHYROXINE 75mcg tablet PO SCH (08:19)
[2018-07-28] MEDS: metoprolol tartrate 12.5mg (1/2 tablet) PO SCH (08:19)
[2018-07-28] MEDS: insulin Lispro (HumaLOG) vial - multi-dose SQ PRN ×2 (08:54→19:04)
[2018-07-28] MEDS ORDERED: furosemide 40mg/4ml inj IV ONE (10:15)
[2018-07-28] MEDS: magnesium hydroxide 30ml (MOM) UD suspension PO PRN (19:02)
[2018-07-28] MEDS: amiodarone 200mg tablet PO SCH (19:02)
[2018-07-28] MEDS: metoprolol tartrate 25mg tablet PO SCH (19:02)
[2018-07-28] MEDS: insulin glargine (Lantus) pen - multi-dose SQ SCH (21:16)
[2018-07-29] VITALS (23 sets, daily range): BP systolic 90–141; BP diastolic 49–83
[2018-07-29 05:57] LABS: BASOPHILS % (AUTO) 0.1 % (0-1); EOSINOPHILS # (AUTO) 0.2 X10'3 (0-0.9); EOSINOPHILS % (AUTO) 2.5 % (0-6); HEMATOCRIT 27.5 % (35.0-45.0); HEMOGLOBIN 9.4 g/dl (12.0-16.0); LYMPHOCYTES % (AUTO) 11.1 % (21-51); MEAN CORPUSCULAR HEMOGLOBIN 31.1 PG (27.0-31.0); MEAN CORPUSCULAR VOLUME 91.4 FL (78-98); MEAN PLATELET VOLUME 9.7 FL (7.4-10.4); MONOCYTES # (AUTO) 0.7 X10'3 (0-0.9); MONOCYTES % (AUTO) 7.8 % (2-12); NEUTROPHILS # (AUTO) 7.4 X10'3 (1.8-7.7); NEUTROPHILS % (AUTO) 78.5 % (42-75); PLATELET COUNT 134 X10'3 (140-440); RED BLOOD COUNT 3.01 X10'6 (4.20-5.60); RED CELL DISTRIBUTION WIDTH 15.8 % (11.5-14.5); WHITE BLOOD COUNT 9.4 X10'3 (4.5-11.0)
[2018-07-29 06:11] LABS: ALBUMIN 2.5 G/DL (3.4-5.0); ANION GAP 5 (8-16); BLOOD UREA NITROGEN 40 MG/DL (7-18); CALCIUM 8.5 MG/DL (8.5-10.1); CHLORIDE 102 MMOL/L (99-107); CREATININE 0.91 MG/DL (0.40-0.90); GLUCOSE 126 MG/DL (70-104); MAGNESIUM 2.5 MG/DL (1.5-2.4); PHOSPHORUS 2.5 MG/DL (2.3-4.5); POTASSIUM 4.7 MMOL/L (3.5-5.1); SODIUM 136 MMOL/L (135-145); TOTAL CARBON DIOXIDE 29.2 MMOL/L (24-32); eGFR 60 ML/MIN
[2018-07-29] MEDS: pantoprazole 40mg Tablet.DR PO SCH (06:42)
[2018-07-29] MEDS: ondansetron/PF 4mg/2ml inj IV PRN (06:42)
[2018-07-29] MEDS: HYDROcodone/acetaminophen 10/325mg tab PO PRN ×4 (06:42→21:51)
[2018-07-29] MEDS ORDERED: bisacodyl 10mg suppository rectal RC STA (07:29)
[2018-07-29] MEDS: amiodarone 200mg tablet PO SCH ×2 (08:11→19:07)
[2018-07-29] MEDS: docusate sod 100mg capsule PO SCH ×2 (08:11→19:07)
[2018-07-29] MEDS: atorvastatin 10mg tablet PO SCH (08:11)
[2018-07-29] MEDS: aspirin 81mg tablet.DR PO SCH (08:11)
[2018-07-29] MEDS: levoTHYROXINE 75mcg tablet PO SCH (08:11)
[2018-07-29] MEDS: metoprolol tartrate 25mg tablet PO SCH ×2 (08:11→19:07)
[2018-07-29] MEDS: insulin Lispro (HumaLOG) vial - multi-dose SQ PRN ×3 (09:20→19:48)
[2018-07-29] MEDS: sodium chloride 0.45% 1,000 ML IV SCH (12:20)
[2018-07-29] MEDS: magnesium hydroxide 30ml (MOM) UD suspension PO PRN (14:43)
[2018-07-29] MEDS: NORepinephrine 8mg/ 250ml NS 250 ML IV SCH (14:49)
[2018-07-29] MEDS: Protein Smoothie (high protein) 240ml (8oz) cup PO SCH (18:00)
[2018-07-29] MEDS: insulin glargine (Lantus) pen - multi-dose SQ SCH (21:53)
[2018-07-30] VITALS (21 sets, daily range): BP systolic 11–158; BP diastolic 51–85
[2018-07-30 05:54] LABS: MAGNESIUM 2.4 MG/DL (1.5-2.4); PHOSPHORUS 2.9 MG/DL (2.3-4.5); POTASSIUM 4.8 MMOL/L (3.5-5.1)
[2018-07-30] MEDS: levoTHYROXINE 75mcg tablet PO SCH (08:01)
[2018-07-30] MEDS: atorvastatin 10mg tablet PO SCH (08:01)
[2018-07-30] MEDS: metoprolol tartrate 25mg tablet PO SCH ×2 (08:01→20:20)
[2018-07-30] MEDS: docusate sod 100mg capsule PO SCH ×2 (08:01→20:20)
[2018-07-30] MEDS: amiodarone 200mg tablet PO SCH ×2 (08:02→20:20)
[2018-07-30] MEDS: aspirin 81mg tablet.DR PO SCH (08:02)
[2018-07-30] MEDS: pantoprazole 40mg Tablet.DR PO SCH (08:02)
[2018-07-30] MEDS: HYDROcodone/acetaminophen 10/325mg tab PO PRN ×2 (08:12→19:19)
[2018-07-30] MEDS: Protein Smoothie (high protein) 240ml (8oz) cup PO SCH ×3 (08:35→19:20)
[2018-07-30] MEDS: insulin Lispro (HumaLOG) vial - multi-dose SQ PRN ×2 (10:09→19:48)
[2018-07-30] MEDS ORDERED: amiodarone 200mg tablet PO ONE (14:25)
[2018-07-31] VITALS (21 sets, daily range): BP systolic 94–135; BP diastolic 48–82
[2018-07-31 04:38] LABS: MAGNESIUM 2.5 MG/DL (1.5-2.4); PHOSPHORUS 3.3 MG/DL (2.3-4.5); POTASSIUM 5.2 MMOL/L (3.5-5.1)
[2018-07-31] MEDS: Protein Smoothie (high protein) 240ml (8oz) cup PO SCH ×3 (08:00→18:53)
[2018-07-31] MEDS ORDERED: magnesium citrate 296ml oral solution PO ONE (08:50)
[2018-07-31] MEDS ORDERED: HYDR-4383 PO (08:59)
[2018-07-31] MEDS ORDERED: AMIO200T40 PO (08:59)
[2018-07-31] MEDS ORDERED: METO25TA6 PO (08:59)
[2018-07-31] MEDS ORDERED: COL100C PO (08:59)
[2018-07-31] MEDS: pantoprazole 40mg Tablet.DR PO SCH (09:23)
[2018-07-31] MEDS: atorvastatin 10mg tablet PO SCH (09:23)
[2018-07-31] MEDS: metoprolol tartrate 25mg tablet PO SCH ×2 (09:23→20:49)
[2018-07-31] MEDS: docusate sod 100mg capsule PO SCH ×2 (09:24→20:00)
[2018-07-31] MEDS: amiodarone 200mg tablet PO SCH ×3 (09:24→20:49)
[2018-07-31] MEDS: levoTHYROXINE 75mcg tablet PO SCH (09:24)
[2018-07-31] MEDS: aspirin 81mg tablet.DR PO SCH (09:24)
[2018-07-31] MEDS: HYDROcodone/acetaminophen 10/325mg tab PO PRN ×2 (09:25→20:49)
[2018-07-31] MEDS: sodium chloride 0.45% 1,000 ML IV SCH (12:20)
[2018-07-31] MEDS: insulin glargine (Lantus) pen - multi-dose SQ SCH (20:59)
[2018-07-31] MEDS: ondansetron/PF 4mg/2ml inj IV PRN (23:24)
[2018-08-01] VITALS (9 sets, daily range): BP systolic 97–117; BP diastolic 53–67
[2018-08-01 05:37] LABS: MAGNESIUM 2.6 MG/DL (1.5-2.4); PHOSPHORUS 3.7 MG/DL (2.3-4.5); POTASSIUM 4.9 MMOL/L (3.5-5.1)
[2018-08-01] MEDS: docusate sod 100mg capsule PO SCH (08:20)
[2018-08-01] MEDS: aspirin 81mg tablet.DR PO SCH (08:20)
[2018-08-01] MEDS: amiodarone 200mg tablet PO SCH ×2 (08:21→13:00)
[2018-08-01] MEDS: HYDROcodone/acetaminophen 10/325mg tab PO PRN ×2 (08:21→14:56)
[2018-08-01] MEDS: atorvastatin 10mg tablet PO SCH (08:21)
[2018-08-01] MEDS: pantoprazole 40mg Tablet.DR PO SCH (08:21)
[2018-08-01] MEDS: levoTHYROXINE 75mcg tablet PO SCH (08:21)
[2018-08-01] MEDS: metoprolol tartrate 25mg tablet PO SCH (08:21)
[2018-08-01] MEDS: Protein Smoothie (high protein) 240ml (8oz) cup PO SCH ×2 (08:22→13:00)
== END 2018-08-01 15:52 | disposition home health service (06) | DRG 235 ==
LOC: PAS IN 05:41 → EDSTATUS 08:30 → CICU 2S 10:07
PROVIDERS: ADMIT Thoracic Surgery (Cardiothoracic Vascular Surgery); ATTEND Thoracic Surgery (Cardiothoracic Vascular Surgery)
PROC: 021209W Bypass Coronary Artery, Three Arteries from Aorta with Autologous Venous Tissue, Open Approach (ICD-10-PCS; 2018-07-25)
PROC: 06BQ4ZZ Excision of Left Saphenous Vein, Percutaneous Endoscopic Approach (ICD-10-PCS; 2018-07-25)
PROC: 06BP4ZZ Excision of Right Saphenous Vein, Percutaneous Endoscopic Approach (ICD-10-PCS; 2018-07-25)
PROC: 5A1221Z Performance of Cardiac Output, Continuous (ICD-10-PCS; 2018-07-25)
PROC: B24BZZ4 Ultrasonography of Heart with Aorta, Transesophageal (ICD-10-PCS; 2018-07-25)
PROC: 30233N1 Transfusion of Nonautologous Red Blood Cells into Peripheral Vein, Percutaneous Approach (ICD-10-PCS; 2018-07-25)
PROC: 02HV33Z Insertion of Infusion Device into Superior Vena Cava, Percutaneous Approach (ICD-10-PCS; 2018-07-25)
PROC: B548ZZA Ultrasonography of Superior Vena Cava, Guidance (ICD-10-PCS; 2018-07-25)
PROC: 02100Z9 Bypass Coronary Artery, One Artery from Left Internal Mammary, Open Approach (ICD-10-PCS; principal; 2018-07-25 07:48)
DX: I25.110 Atherosclerotic heart disease of native coronary artery with unstable angina pectoris (principal); N17.0 Acute kidney failure with tubular necrosis; I50.31 Acute diastolic (congestive) heart failure; E11.40 Type 2 diabetes mellitus with diabetic neuropathy, unspecified; E78.5 Hyperlipidemia, unspecified; I11.0 Hypertensive heart disease with heart failure; G43.909 Migraine, unspecified, not intractable, without status migrainosus; G89.29 Other chronic pain; M54.9 Dorsalgia, unspecified; I48.0 Paroxysmal atrial fibrillation; N39.3 Stress incontinence (female) (male); D64.9 Anemia, unspecified; K59.00 Constipation, unspecified; M19.90 Unspecified osteoarthritis, unspecified site; I25.2 Old myocardial infarction; Z90.710 Acquired absence of both cervix and uterus; Z95.5 Presence of coronary angioplasty implant and graft; Z79.899 Other long term (current) drug therapy; Z79.82 Long term (current) use of aspirin; Z88.2 Allergy status to sulfonamides; Z87.891 Personal history of nicotine dependence; Z82.49 Family history of ischemic heart disease and other diseases of the circulatory system; Z82.5 Family history of asthma and other chronic lower respiratory diseases
CPT/HCPCS: 0232T; 93306; 93312; 93325; 36415; 36600; 71045; 71046; 80048; 80053; 81001; 82330; 82435; 82803; 82947; 82948; 83036; 83735; 84100; 84132; 84295; 84443; 84484; 85018; 85025; 85027; 85347; 85384; 85610; 85730; 86885; 86900; 86901; 86920; 87070; 87077; 87088; 87186; 93005; 93880; 93931; 93971; 94002; 94003; 94010; 94667; 94760; 97110; 97116; 97162; 97530; A6213; A6255; A6258; A6402; A6449; A7000; A7048; C1751; J0282; J0690; J1265; J1644; J1815; J1940; J2001; J2060; J2150; J2250; J2270; J2370; J2405; J2440; J2930; J3370; J3475; J3480; J3490; J7030; J7060; J7120; P9016; P9045; P9047